=== PATIENT | female | born 1975 | race Caucasian/White ===

== ENCOUNTER 2016-11-01 15:58 | Emergency (ER) | payer OTHER ==
[~2016-11-01 15:58] MED LIST: ALBUTEROL17 GM INH; AMOXICILLIN250 MG PO; MEDROL4 MG/DOSE- PO; PEN-VEE K PO; PREDNISONE PO; PROMETHAZINE D118 ML PO; VOLTAREN75 MG PO; ZITHROMAX PO
== END 2016-11-01 16:45 | disposition home or self-care (01) ==
LOC: SED 15:58
DX: K04.01 Reversible pulpitis (principal); F17.210 Nicotine dependence, cigarettes, uncomplicated
CPT/HCPCS: 99282